=== PATIENT | female | born 1990 ===

== ENCOUNTER 2016-12-02 19:14 | Inpatient (IN) ==
[2016-12-02] MEDS ORDERED: SODIUM CHLORIDE 0.9% 1,000 ML IV STA (19:47)
[2016-12-02] MEDS ORDERED: VANCOMYCIN INJ 1,000 MG in SODIUM CHLORIDE 0.9% 250 ML IV STA (19:47)
--- NOTE | 2016-12-02 19:53 | Emergency Department Note ---
Arrival - Arrival Chief Complaint: Abscess Stated Complaint: abcess removal scheduled ED Nursing Triage Note: C/O Perirectal abscess. Onset 4-5 days ago. Pt was transferred from [facility] for further evaluation/possible admission. +fever at home. Pt reports that she is a diabetic, but hasn't taken medication for approximately 6 months. FSG 398 at time of triage Mode of Arrival: Ambulatory Limitations: No Limitations Source: Patient Time Seen by Provider: 12/02/16 19:47 - History of Present Illness HPI Narrative: This 26-year-old female presents on referral from [facility] for further evaluation of perirectal abscess. The patient's had onset of lesion she states 4-5 days ago. She has been constipated and cannot really speak to pain on defecation. She denies chills or fever although she was febrile [facility] and likewise here on arrival. Of note, she is a diabetic but has not taken her medication for approximately 6 months. She does not recall what she took at the time. Currently at rest in bed she is in no acute medical distress Onset (ago): day(s) (Patient presents 5 days after onset of symptoms.) Date of Last Menstrual Period: Nov 08 Allergies/Adverse Reactions: Allergies Allergy/AdvReac Type Severity Reaction Status Date / Time No Known Allergies Allergy Verified 12/02/16 19:27 Home Medications: Home Medications Medication Instructions Recorded Confirmed Type No Known Home Medications [No 12/02/16 12/02/16 History Known Home Medications] Review of System - Review of System 12 point system: reviewed and no additional remarkable complaints except as stated - Review of System Gastrointestinal: Present: as per HPI Skin: Present: as per HPI Medical,Surgical,& Family Hx - Medical History Endocrine: History of: Diabetes Mellitus (NIDDM) - Social History Smoking Status: Current every day smoker Frequency of Alcohol Use: Frequently Type of Drug Use: None Exam Physical Examination: GENERAL: Obese [place] female in no acute distress. HEENT: Normocephalic. No trauma. Moist mucous membranes. EOMI. PERRLA. ENT NML NECK: Supple. No adenopathy. CARDIAC: Regular. No murmurs. CHEST: Clear to auscultation. No respiratory distress. ABDOMEN: Soft. Nontender. Active bowel sounds.: Left buttock large perirectal and cheek abscess EXTREMITIES: No trauma. Normal ROM. No pedal edema. SKIN: No diaphoresis. No rash. NEURO: Alert. Neuro intact no focal deficits. Vital Signs: Vital Signs Temperature 100.1 F H 12/02/16 19:28 Pulse Rate 122 H 12/02/16 19:28 Respiratory Rate 16 12/02/16 19:28 Blood Pressure 119/90 12/02/16 19:28 O2 Sat by Pulse Oximetry 98 12/02/16 19:28 Course - Reevaluation(s) Reevaluation #1: Advised patient of admission need for restart of medications for diabetes - Consultations Consultation #1: Discussed with Dr. Corey who will admit for further evaluation treatment. Disposition Clinical Impression: Left perirectal abscess, Poorly controlled diabetes Case discussed with: patient, patient's family Disposition: Still a Patient Condition: Guarded Time of Disposition: 20:04
[2016-12-02] MEDS ORDERED: INSULIN REGULAR 100 UNIT/ML IV STA (19:55)
[2016-12-02] MEDS ORDERED: DEXTROSE 50% 25 GM/50 ML VIAL IV PRN (19:57)
[2016-12-02] MEDS ORDERED: GLUCAGON 1 MG VIAL IM PRN (19:57)
[2016-12-02] MEDS ORDERED: VANCOMYCIN 1,000 MG VIAL ONE (20:02)
[2016-12-02 20:10] LABS: Basophils % 0.4 % (0.0-0.8); Eosinophils % 0.3 % (0.00-10.9); Hematocrit 35.9 VOL% (35.7-47.0); Hemoglobin 13.1 GM/DL (12.0-16.0); Immature Granulocytes % 0.6 %; Immature Granulocytes Absolute 0.06 #; Lymphocytes # 1.9 10*3/uL (1.4-4.0); Lymphocytes % 18.7 % (21.3-54.2); Mean Corpuscular HGB Conc 36.5 GM/DL (32-36); Mean Corpuscular Hemoglobin 33 PG (27-34); Mean Corpuscular Volume 90.2 FL (87-102); Mean Platelet Volume 10.9 FL (9.6-12.0); Monocytes # 0.7 10*3/uL (0.11-0.8); Neutrophils # 7.6 10*3/uL (1.4-7.4); Platelet Count 213 T/CUMM (130-400); Red Blood Count 3.98 MC/CUMM (3.8-5.5); Red Cell Distribution Width 11.4 % (9.3-17.3); White Blood Count 10.4 T/CUMM (4-12)
[2016-12-02 20:25] LABS: Calcium 8.7 MG/DL (8.5-10.1); Osmolality,Calculated 280.2 MOS/KG (273-304); Potassium 3.7 MMOL/L (3.5-5.1)
[2016-12-02] MEDS ORDERED: DEXTROSE 50% 25 GM/50 ML SYRINGE IV PRN (22:00)
[2016-12-03] MEDS: SODIUM CHLORIDE 0.9% 1,000 ML IV SCH ×5 (01:24→21:45)
[2016-12-03] MEDS: HYDROmorphone 2 MG/1 ML VIAL IV PRN ×2 (01:25→14:04)
[2016-12-03] MEDS: PIPERACILLIN/TAZOBACTAM 3,375 MG in SODIUM CHLORIDE 0.9% 100 ML IV SCH ×2 (01:25→11:20)
[2016-12-03] MEDS: INSULIN REGULAR 100 UNIT/ML SUBCUT SCH ×5 (01:25→22:00)
[2016-12-03] MEDS: ONDANSETRON 4 MG/2 ML VIAL IV PRN ×3 (01:43→18:40)
[2016-12-03] MEDS ORDERED: VANCOMYCIN INJ 1,250 MG in SODIUM CHLORIDE 0.9% 250 ML IV SCH (05:00)
[2016-12-03] MEDS ORDERED: LACTATED RINGERS 1,000 ML IV ONE (05:44)
--- NOTE | 2016-12-03 06:00 | EKG Report ---
Stationary ECG Study [facility] Test Date: 12/03/2016 5:59:21 AM Pat Name: LIZETH LEMON Department: Room: 332 Gender: F Aerobics Teacher: SCOTT : 1990 Requested by: Nick Corey Order Number: [id number] Reading MD: JAMILAH POLLOCK Intervals [place] Rate: 114 P: 32 IN: 132 QRS: 11 QRSD: 107 T: 15 QT: 329 QTc: 396 Interpretive Statements SINUS TACHYCARDIA ABNORMAL RHYTHM ECG Electronically Signed On 12-03-16 10:21:09 CDT by JAMILAH POLLOCK [email or web address]
--- NOTE | 2016-12-03 07:39 | General Surg History&Physical ---
Assessment and Plan (1) Bryon-rectal abscess Status: Acute Assessment and plan: Plan for rectal exam under anesthesia with incision and drainage of bryon-rectal abscess. I have discussed the risks, benefits, and alternatives of the operation, and the expected outcomes have been reviewed. The patient would like to proceed with the operation. Current Visit: Yes History of Present Illness Chief complaint: Anal pain and a fever History of present illness: Ms. Ferrari is a 26 year old female who has a history of diabetes and prior perirectal abscess requiring drainage in the office who was transferred [facility] for anal pain with large perirectal abscess. She had fevers overnight and tachycardia and is on antibiotics. Home Medications Medication Instructions Recorded Confirmed Type No Known Home Medications [No 12/02/16 12/02/16 History Known Home Medications] Allergies Allergy/AdvReac Type Severity Reaction Status Date / Time No Known Allergies Allergy Verified 12/02/16 19:27 Medical,Surgical,& Family Hx - Medical History HEENT: History of: Eye Problem (wears glasses) Endocrine: History of: Diabetes Mellitus (NIDDM) - Family History Family History: Reports;: Family Cancer, Family Diabetes - Social History Smoking Status: Current every day smoker Frequency of Alcohol Use: Frequently Type of Drug Use: None Exam - Constitutional Vitals: Period Temp Pulse Resp BP Sys/[place] Pulse Ox Last 24 Hr 99.5 F-101.2 F 75-122 16-21 103-131/63-90 96-100 General appearance: no acute distress, over weight - Head Head exam: Present: normal inspection, normocephalic - Eye Eye exam: Present: EOMI Pupils: Present: CAMELIA - ENT ENT exam: Present: normal exam Mouth exam: Present: normal external inspection, normal voice - Neck Neck exam: Present: normal inspection, trachea midline - Respiratory Respiratory exam: Present: clear to auscultation bilaterally. Absent: accessory muscle use, chest wall tenderness - Cardiovascular Cardiovascular exam: Present: tachycardia. Absent: irregular rhythm, systolic murmur - GI/Abdominal GI/Abdominal exam: Present: normal bowel sounds, soft. Absent: tenderness, rebound - Anus/Rectum Anus/Rectum: other (large bryon-rectal abscess) - Neurological Exam Neurological exam: Present: alert, oriented X3 Speech: Present: normal - Skin Skin exam: Present: normal color, warm - Constitutional Constitutional: Present: as per HPI - EENT Nose, mouth and throat: Present: as per HPI - Cardiovascular Cardiovascular: Present: as per HPI - Respiratory Respiratory: Present: as per HPI - Gastrointestinal Gastrointestinal: Present: as per HPI - Genitourinary Genitourinary: Present: as per HPI - Musculoskeletal Musculoskeletal: Present: as per HPI - Neurological Neurological: Present: as per HPI - Endocrine Endocrine: Present: as per HPI Hematologic/Lymphatic: Present: as per HPI Results - Labs CBC & BMP: 12/02/16 19:49 12/02/16 19:49
--- NOTE | 2016-12-03 09:40 | Operative Note ---
Date of procedure: 12/03/16 Pre-op diagnosis: Perirectal abscess Post-op diagnosis: same Procedure: Preoperative diagnosis Perirectal abscess Postoperative diagnosis Same Procedures performed 1. Rectal exam under anesthesia 2. Incision and drainage of perirectal abscess Findings Large perirectal abscess with purulent fluid drained externally. Culture sent to the lab. Patient tolerated the procedure well. There is no fistula to the rectum. Complications None apparent Specimen Cultures sent to the lab Anesthesia General LMA Blood loss Minimal Indications Recurrent perirectal abscess Description of procedure The patient was taken to the operating room and transferred to the operating table in the supine position. Pressure points were padded and SCDs were placed lower extremities. General LMA anesthesia was administered. The patient was placed in lithotomy position. The perineum and buttocks was prepped with Betadine and draped sterilely. Timeout was called. Rectal exam under anesthesia revealed no internal opening into the rectum or the anal canal. There is a large indurated fluctuant mass in the left area of the anal margin consistent with perirectal abscess. This was drained externally with a scalpel. Pus was drained and loculations were broken up completely. Cultures were taken from the purulent fluid. Wound was irrigated and packed with iodoform packing gauze and covered with dry gauze as well as ABD and mesh underwear. The patient was taken out of lithotomy position, extubated, transferred to recovery. Postoperative plan Continue wound care and antibiotics Glycemic control and restart home medications once we get these. Implants: iodoform packing gauze Anesthesia: GETA Surgeon / Physician: Nick Corey Estimated blood loss: minimal Specimens: other (cultures) Condition: stable Disposition: PACU Results - Labs CBC & BMP: 12/02/16 19:49 12/02/16 19:49 Discharge Plan - Discharge Data Disposition: Disch To Home/Self Care Condition at Discharge: Stable Discharge Diet: advance to your usual diet Activity: resume usual activities as tolerated Hygiene: may shower Weight Bearing at Discharge: weight bear as tolerated Driving: other (Do not drive or operate heavy machinery for at least 24 hours and after you are off of narcotic pain medications.) Contact your physician if you experience:: fever over 101, Difficulty voiding, Redness or swelling, Nausea/Vomiting, Shortness of breath, Bleeding, pain uncontrolled by pain medications Wound / Dressing Care Instructions: Pack the wound once daily with packing gauze and cover with dry gauze. - Discharge Medications New Sulfameth/Trimeth 800-160 Tab [Bactrim DS Tab] 1 tablet PO BID #20 tablet HYDROcodone/ACETAMIN 7.5-325 [[place] 7.5-325] 1 tablet PO Q4H PRN #15 tablet PRN Reason: Pain - Follow Up or Referral Follow Up: Nick Corey MD [Physician] - 1 Week - Forms/Instructions
--- NOTE | 2016-12-03 10:19 | Anesthesia Post-Op ---
Anesthesia Post OP - Post Ansesthetic Evaluation Patient seen in post op: Yes Resp: within normal limits CV: within normal limits Mental: within normal limits Temp: within normal limits Ngtv-[id number]-Xigvngcch: within normal limits Nausea and Vomiting: within normal limits Pain: within normal limits
[2016-12-03] MEDS ORDERED: PROPOFOL 200 MG/20 ML VIAL IV ONE (10:45)
[2016-12-03] MEDS ORDERED: SEVOFLURANE 1 UNIT/15 MINUTE INH ONE (10:45)
[2016-12-03] MEDS ORDERED: ACETAMINOPHEN 1,000 MG/100 ML VIAL IV ONE (10:46)
[2016-12-03] MEDS ORDERED: ONDANSETRON 4 MG/2 ML VIAL ONE (10:46)
[2016-12-03] MEDS ORDERED: KETOROLAC 30 MG/1 ML VIAL ONE (10:46)
[2016-12-03] MEDS ORDERED: MIDAZOLAM 2 MG/2 ML VIAL ONE (10:46)
[2016-12-03] MEDS ORDERED: fentaNYL 100 MCG/2 ML VIAL ONE (10:47)
[2016-12-03] MEDS ORDERED: GLUCAGON 1 MG VIAL IM PRN ×2 (13:04→13:05)
[2016-12-03] MEDS ORDERED: DEXTROSE 50% 25 GM/50 ML VIAL IV PRN ×2 (13:04→13:05)
--- NOTE | 2016-12-03 13:27 | Hospitalist Consult Note ---
Assessment and Plan (1) Uncontrolled diabetes mellitus Status: Acute Assessment and plan: The patient's blood sugars have remained grossly elevated. This may be largely attributed to the current infectious process however, the patient reported noncompliance 6 months. We will obtain a hemoglobin A1c and continue Accu- Cheks with sliding scale coverage. In addition, we will start Levemir 15 units twice daily with meals. Spoke with patient in great detail regarding the merits glycemic control and consequences associated with poor glycemic control and medical noncompliance. Patient reported that she "works at night and cannot meet her appointments early in the morning". Current Visit: Yes History of Present Illness - Consult Narrative Reason for consult: Diabetes management History of present illness: This is a very pleasant 26-year-old female that presented to [facility] on the night of December 02, 2016 as a transfer from the [facility] for further evaluation of a perirectal abscess. The patient reported a medical history significant for diabetes mellitus, multiple diabetic abscesses, and current nicotine use. Patient is a surgical history for multiple incision and drainage for multiple diabetic abscesses. The patient reported the onset of symptoms 4-5 days prior to presentation. The patient reported that she noticed a lesion and that she had been experiencing constipation and painful defecation. She presented to the [facility] for further evaluation. The patient was seen and evaluated at the [facility]. The patient was noted to be febrile at the time of presentation and hypoglycemic with a glucose level noted at 398. In addition, a large left buttock perirectal and cheek abscess was noted. The patient was subsequently transferred to [facility] for continuation of care and surgical evaluation. Surgical consultation was requested at the time of admission. The patient was seen and recommendations were given. On December 03, 2016, the patient underwent incision and drainage of perirectal abscess under the direction of Dr. Nick Corey. During the clinical encounter, the patient's blood sugars have remained remarkably elevated. Hospital medicine has been consulted to assist in the management of the patient's diabetes mellitus. CC: Nick Corey MD - Home Medications and Allergies Home Medications: Home Medications Medication Instructions Recorded Confirmed Type HYDROcodone/ACETAMIN 7.5-325 1 tablet PO Q4H PRN #15 tablet 12/03/16 Rx [[place] 7.5-325] Sulfameth/Trimeth 800-160 Tab 1 tablet PO BID #20 tablet 12/03/16 Rx [Bactrim DS Tab] Allergies/Adverse Reactions: Allergies Allergy/AdvReac Type Severity Reaction Status Date / Time No Known Allergies Allergy Verified 12/02/16 19:27 Medical,Surgical,& Family Hx - Medical History HEENT: History of: Eye Problem (wears glasses) Endocrine: History of: Diabetes Mellitus (NIDDM) - Family History Family History: Reports;: Family Cancer, Family Diabetes - Social History Smoking Status: Current every day smoker Have you smoked in the last 12 months: Yes Time spent discussing smoking cessation with patient: 3 to 10 minutes Frequency of Alcohol Use: Frequently Type of Drug Use: None Marital Status: Single Lives With:: Parent Functional capacity: independent ambulation 12 point system: reviewed and no additional remarkable complaints except as stated Exam - Constitutional Vitals: Period Temp Pulse Resp BP Sys/[place] Pulse Ox Last 24 Hr 97.9 F-101.2 F 75-122 16-21 103-131/63-90 95-100 General appearance: normal weight, no acute distress - Head Head exam: Present: normal inspection, normocephalic, atraumatic - Eye Eye exam: Present: EOMI. Absent: conjunctival injection Pupils: Present: CAMELIA, normal accommodation - ENT ENT exam: Present: normal exam, normal external ear exam, normal oropharynx - Neck Neck exam: Present: normal inspection. Absent: lymphadenopathy, meningismus, tenderness, thyromegaly - Respiratory Respiratory exam: Present: clear to auscultation bilaterally. Absent: rales, rhonchi, stridor, wheezes - Cardiovascular Cardiovascular exam: Present: regular rate and rhythm. Absent: carotid bruit, diastolic murmur, gallop, irregular rhythm, rubs, systolic murmur - GI/Abdominal GI/Abdominal exam: Present: normal bowel sounds, soft - Extremities Exam Extremities exam: Present: normal inspection, normal capillary refill, full ROM , edema - Back Exam Back exam: Present: normal inspection - Neurological Exam Neurological exam: Present: alert, oriented X3, CN II-XII intact - Psychiatric Psychiatric exam: Present: normal affect, normal mood - Skin Skin exam: Present: normal color, warm, other (Status post incision and drainage to left buttocks and perirectal abscess.) Results - Labs CBC & BMP: 12/02/16 19:49 12/02/16 19:49 Lab Results: I have reviewed the past 24 hour labs Specialty Discharge - Follow Up or Referrals Follow up with: Nick Corey MD [Physician] - 12/08/16 2:30 pm
[2016-12-03] MEDS ORDERED: INSULIN GLARGINE 100 UNIT/ML SUBCUT SCH ×2 (17:00→21:00)
[2016-12-03] MEDS: INSULIN GLARGINE 100 UNIT/ML SUBCUT SCH ×2 (18:39→21:59)
[2016-12-03] MEDS ORDERED: PROMETHAZINE 25 MG/1 ML VIAL IM PRN (19:15)
[2016-12-03] MEDS: SULFAMETHOX/TRIMETHOPRIM 800-160 MG TABLET PO SCH ×2 (19:47→21:55)
[2016-12-04] MEDS: SODIUM CHLORIDE 0.9% 1,000 ML IV SCH ×3 (03:00→23:49)
[2016-12-04 03:51] LABS: Basophils % 0.2 % (0.0-0.8); Eosinophils % 0.3 % (0.00-10.9); Hematocrit 30.6 VOL% (35.7-47.0); Hemoglobin 11.2 GM/DL (12.0-16.0); Immature Granulocytes % 0.6 %; Immature Granulocytes Absolute 0.05 #; Lymphocytes # 1.1 10*3/uL (1.4-4.0); Lymphocytes % 12.8 % (21.3-54.2); Mean Corpuscular HGB Conc 36.6 GM/DL (32-36); Mean Corpuscular Hemoglobin 33 PG (27-34); Mean Corpuscular Volume 90.8 FL (87-102); Mean Platelet Volume 11.1 FL (9.6-12.0); Monocytes # 0.8 10*3/uL (0.11-0.8); Monocytes % 9.6 % (1.7-12.7); Neutrophils # 6.7 10*3/uL (1.4-7.4); Neutrophils % 76.5 % (38.7-73.9); Platelet Count 192 T/CUMM (130-400); Red Blood Count 3.37 MC/CUMM (3.8-5.5); Red Cell Distribution Width 11.2 % (9.3-17.3); White Blood Count 8.7 T/CUMM (4-12)
[2016-12-04 04:23] LABS: Albumin 2.3 G/DL (3.4-5.0); Calcium 7.9 MG/DL (8.5-10.1); Magnesium 1.9 MG/DL (1.8-2.4); Osmolality,Calculated 285.4 MOS/KG (273-304); Phosphorous 3.8 MG/DL (2.5-4.9); Potassium 3.6 MMOL/L (3.5-5.1)
[2016-12-04] MEDS: ONDANSETRON 4 MG/2 ML VIAL IV PRN ×2 (08:58→15:53)
[2016-12-04] MEDS: INSULIN REGULAR 100 UNIT/ML SUBCUT SCH ×4 (09:01→23:50)
[2016-12-04] MEDS: CLINDAMYCIN INJ 300 MG in PREMIX 1 EACH IV SCH ×3 (09:07→21:00)
[2016-12-04] MEDS ORDERED: ACETAMINOPHEN 325 MG/10.15 ML UDCUP PO PRN (09:10)
--- NOTE | 2016-12-04 09:10 | Event Note ---
She is afebrile. Her main complaint has been nausea. Her pain in her bottom is much better. She thinks her nausea may be better this morning. We have given her Zofran and then Phenergan. We will continue antibiotics and wound care for now.
--- NOTE | 2016-12-04 10:06 | Hospitalist Progress Note ---
Addendum entered and electronically signed by Ilya Kitchen CNP 12/04/16 10 :14: In addition, the patient's hemoglobin A1c was noted at 11.4 a clear indication of poor glycemic control. Spoke with patient in great detail regarding the need to maintain medical compliance and glycemic control. We will continue Accu -Cheks with sliding scale coverage as previously ordered. We will monitor blood glucose levels. Although the patient has an infectious process that could possibly be contributing to her elevations in her glucose levels, I feel that this is largely related to medical noncompliance. Original Note: Assessment and Plan (1) Uncontrolled diabetes mellitus Status: Acute Assessment and plan: The patient's blood sugars have remained grossly elevated. This may be largely attributed to the current infectious process however, the patient reported noncompliance 6 months. We will obtain a hemoglobin A1c and continue Accu- Cheks with sliding scale coverage. In addition, we will start Levemir 15 units twice daily with meals. Spoke with patient in great detail regarding the merits glycemic control and consequences associated with poor glycemic control and medical noncompliance. Patient reported that she "works at night and cannot meet her appointments early in the morning". Current Visit: Yes (2) Acute renal failure Status: Acute Assessment and plan: The patient experienced an abrupt decrease in renal function; BUN and creatinine noted at 20/2.10 today a noted change from 11/0.80 on yesterday. This may be largely attributed to her antibiotic therapy of Bactrim. We will discontinue Bactrim and start clindamycin 300 mg every 6 hours intravenously. In addition we will continue to rehydrate and recheck renal function in a.m. Current Visit: Yes (3) Liver function abnormality Status: Acute Assessment and plan: Upon review of the a.m. labs, the patient's renal function is noted less than favorable. Total bilirubin was noted at 2.0, AST 122, ALT 189, and alkaline phosphatase at 238. The sudden onset of liver dysfunction may be attributed to the use of Bactrim. The patient's Bactrim has been discontinued. We will start clindamycin 300 mg every 6 hours intravenously. In addition, we will obtain hepatitis panel to assess for acute hepatitis infection. Current Visit: Yes Hospitalist: Subjective Interval history: Patient seen and examined; chart reviewed. No significant overnight events reported per staff. Noted decrease in renal function upon review of labs this a.m. BUN and creatinine noted at 20/2.1. Hemoglobin A1c noted at 11.4. Exam - Constitutional Vitals: Period Temp Pulse Resp BP Sys/[place] Pulse Ox Last 24 Hr 97.1 F-98.7 F 77-99 16-20 103-147/57-90 94-100 General appearance: normal weight, no acute distress - Head Head exam: Present: normal inspection, normocephalic, atraumatic - Eye Eye exam: Present: EOMI. Absent: conjunctival injection Pupils: Present: CAMELIA, normal accommodation - ENT ENT exam: Present: normal exam, normal external ear exam, normal oropharynx - Neck Neck exam: Present: normal inspection. Absent: lymphadenopathy, meningismus, thyromegaly - Respiratory Respiratory exam: Present: clear to auscultation bilaterally. Absent: rales, rhonchi, stridor, wheezes - Cardiovascular Cardiovascular exam: Present: regular rate and rhythm. Absent: carotid bruit, diastolic murmur, gallop, JVD, rubs, systolic murmur - GI/Abdominal GI/Abdominal exam: Present: normal bowel sounds, soft - Extremities Exam Extremities exam: Present: normal inspection, normal capillary refill, full ROM. Absent: edema - Back Exam Back exam: Present: normal inspection - Neurological Exam Neurological exam: Present: alert, oriented X3, CN II-XII intact - Psychiatric Psychiatric exam: Present: normal affect, normal mood - Skin Skin exam: Present: normal color, warm, dry Results - Labs CBC & BMP: 12/04/16 03:22 12/04/16 03:22 Lab Results: I have reviewed the past 24 hour labs Specialty Discharge - Follow Up or Referrals Follow up with: Nick Corey MD [Physician] - 12/08/16 2:30 pm
[2016-12-04 10:07] LABS: Hepatitis A Ab IgM Quant 0.06 Index; Hepatitis A Ab IgM Result Negative (Negative); Hepatitis B Core IgM Quant 0.11 Index; Hepatitis B Core IgM Result Negative (Negative); Hepatitis B Surface Ag Quant < 0.10 Index; Hepatitis B Surface Ag Result Negative (Negative); Hepatitis C Virus Ab Quant 0.04 Index; Hepatitis C Virus Ab Result Negative (Negative)
[2016-12-04] MEDS ORDERED: ACETAMINOPHEN 325 MG TABLET PO PRN (12:00)
[2016-12-04] MEDS ORDERED: SODIUM CHLORIDE 0.9% 1,000 ML IV ONE (13:09)
[2016-12-04] MEDS: INSULIN GLARGINE 100 UNIT/ML SUBCUT SCH ×2 (18:08→23:50)
[2016-12-05] MEDS: ONDANSETRON 4 MG/2 ML VIAL IV PRN ×2 (00:05→08:47)
[2016-12-05] MEDS: CLINDAMYCIN INJ 300 MG in PREMIX 1 EACH IV SCH ×4 (02:40→21:18)
[2016-12-05 04:52] LABS: Calcium 7.9 MG/DL (8.5-10.1); Magnesium 1.9 MG/DL (1.8-2.4); Osmolality,Calculated 291.1 MOS/KG (273-304); Potassium 3.8 MMOL/L (3.5-5.1)
[2016-12-05 06:05] LABS: Hepatitis A Ab IgM Quant 0.06 Index; Hepatitis A Ab IgM Result Negative (Negative); Hepatitis B Core IgM Quant 0.11 Index; Hepatitis B Core IgM Result Negative (Negative); Hepatitis B Surface Ag Quant < 0.10 Index; Hepatitis B Surface Ag Result Negative (Negative); Hepatitis C Virus Ab Quant 0.05 Index; Hepatitis C Virus Ab Result Negative (Negative)
[2016-12-05] MEDS: SODIUM CHLORIDE 0.9% 1,000 ML IV SCH ×3 (06:09→21:20)
[2016-12-05] MEDS: INSULIN REGULAR 100 UNIT/ML SUBCUT SCH ×4 (08:22→21:21)
--- NOTE | 2016-12-05 08:55 | Hospitalist Progress Note ---
Assessment and Plan (1) Uncontrolled diabetes mellitus Status: Acute Assessment and plan: The patient's blood sugars have remained grossly elevated. This may be largely attributed to the current infectious process however, the patient reported noncompliance 6 months. We will obtain a hemoglobin A1c and continue Accu- Cheks with sliding scale coverage. In addition, we will start Levemir 15 units twice daily with meals. Spoke with patient in great detail regarding the merits glycemic control and consequences associated with poor glycemic control and medical noncompliance. Patient reported that she "works at night and cannot meet her appointments early in the morning". Current Visit: Yes (2) Acute renal failure Status: Acute Assessment and plan: The patient experienced an abrupt decrease in renal function; BUN and creatinine noted at 20/2.10 today a noted change from 11/0.80 on yesterday. This may be largely attributed to her antibiotic therapy of Bactrim. We will discontinue Bactrim and start clindamycin 300 mg every 6 hours intravenously. In addition we will continue to rehydrate and recheck renal function in a.m. 12/05-BUN and creatinine remain abnormal at 17/2.10. Upon examination this morning, the patient's intravenous fluids have been stopped. Spoke with patient on the concern patient reported that she "told him that she did not need them". Spoke with patient in great detail regarding her current renal function and the imperative need for fluid resuscitation. Instructed nursing staff to resume IV fluids as previously ordered. We will recheck CMP in a.m. Current Visit: Yes (3) Liver function abnormality Status: Acute Assessment and plan: Upon review of the a.m. labs, the patient's renal function is noted less than favorable. Total bilirubin was noted at 2.0, AST 122, ALT 189, and alkaline phosphatase at 238. The sudden onset of liver dysfunction may be attributed to the use of Bactrim. The patient's Bactrim has been discontinued. We will start clindamycin 300 mg every 6 hours intravenously. In addition, we will obtain hepatitis panel to assess for acute hepatitis infection. 12/05-hepatitis panel negative. We will we will monitor hepatic function closely and continue IV rehydration. We will recheck labs in a.m. Current Visit: Yes Hospitalist: Subjective Interval history: Patient seen and examined; chart reviewed. No significant overnight events reported per staff. Creatinine remains elevated at 2.10. We will continue fluid resuscitation and recheck labs in a.m. Exam - Constitutional Vitals: Period Temp Pulse Resp BP Sys/[place] Pulse Ox Last 24 Hr 97.7 F-98.2 F 66-83 16-20 126-153/70-97 95-99 General appearance: normal weight, no acute distress - Head Head exam: Present: normal inspection, normocephalic, atraumatic - Eye Eye exam: Present: EOMI. Absent: conjunctival injection Pupils: Present: CAMELIA, normal accommodation - ENT ENT exam: Present: normal exam, normal external ear exam, normal oropharynx - Neck Neck exam: Present: normal inspection. Absent: lymphadenopathy, meningismus, tenderness, thyromegaly - Respiratory Respiratory exam: Present: clear to auscultation bilaterally. Absent: rales, rhonchi, stridor, wheezes - Cardiovascular Cardiovascular exam: Present: regular rate and rhythm. Absent: carotid bruit, diastolic murmur, gallop, JVD, rubs, systolic murmur - GI/Abdominal GI/Abdominal exam: Present: normal bowel sounds, soft - Extremities Exam Extremities exam: Present: normal inspection, normal capillary refill, full ROM. Absent: edema - Back Exam Back exam: Present: normal inspection - Neurological Exam Neurological exam: Present: alert, oriented X3 - Psychiatric Psychiatric exam: Present: normal affect, normal mood - Skin Skin exam: Present: normal color, warm, dry, other (Status post I&D of perirectal and left buttock abscess) Results - Labs CBC & BMP: 12/04/16 03:22 12/05/16 02:46 Lab Results: I have reviewed the past 24 hour labs Specialty Discharge - Follow Up or Referrals Follow up with: Nick Corey MD [Physician] - 12/08/16 2:30 pm
[2016-12-05] MEDS ORDERED: PROCHLORPERAZINE 5 MG TABLET PO PRN (10:27)
[2016-12-05] MEDS ORDERED: ONDANSETRON 4 MG/2 ML VIAL IV PRN (10:29)
--- NOTE | 2016-12-05 11:15 | Event Note ---
She continues to have pain and nausea. Etiology of this is unclear. I took out her packing and looked at her wound carefully today. I do not see evidence of recurring infection or necrosis. We will continue antibiotics and she does not appear that she is for discharge at this point.
[2016-12-05] MEDS: METOCLOPRAMIDE 10 MG/2 ML VIAL IV PRN (11:52)
[2016-12-05] MEDS: INSULIN GLARGINE 100 UNIT/ML SUBCUT SCH ×2 (18:42→21:19)
[2016-12-06] MEDS: CLINDAMYCIN INJ 300 MG in PREMIX 1 EACH IV SCH (01:22)
[2016-12-06] MEDS: METOCLOPRAMIDE 10 MG/2 ML VIAL IV PRN (01:24)
[2016-12-06] MEDS: SODIUM CHLORIDE 0.9% 1,000 ML IV SCH (05:43)
[2016-12-06] MEDS ORDERED: LEVOFLOXACIN 750 MG TABLET PO SCH (07:00)
--- NOTE | 2016-12-06 07:36 | Discharge Summary ---
Hospital Course - Hospital Course Hospital Course: The patient was admitted with perirectal abscess and taken to the operating room on 12/03/2016 for incision and drainage of perirectal abscess externally. She defervesced and her white blood cell count normalized. She was kept over the weekend was ready for discharge on 12/06/2016. She was discharged home with Levaquin and [place]. Diagnosis - Discharge Diagnosis (1) Indira-rectal abscess Status: Acute Specialty Discharge - Follow Up or Referrals Follow up with: Nick Corey MD [Physician] - 12/08/16 2:30 pm Discharge Plan - Discharge Data Disposition: Disch To Home/Self Care Condition at Discharge: Stable Discharge Diet: diabetic diet Activity: resume usual activities as tolerated Hygiene: may shower Weight Bearing at Discharge: weight bear as tolerated Driving: other (Do not drive or operate heavy machinery for at least 24 hours and after you are off of narcotic pain medications.) Contact your physician if you experience:: fever over 101, Difficulty voiding, Redness or swelling, Nausea/Vomiting, Shortness of breath, Bleeding, pain uncontrolled by pain medications Wound / Dressing Care Instructions: Clean the wound once daily and packed with iodoform packing gauze. Take a sitz bath after each bowel movement and make sure the area is cleaned thoroughly and repacked afterwards in addition. - Discharge Medications New Insulin Glargine [Lantus] 25 unit SUBCUT BEDTIME unit Insulin Glargine [Lantus] 10 unit SUBCUT DAILY W/SUPPER unit Levofloxacin Tab [Levaquin Tab] 750 mg PO Q48H #14 tablet HYDROcodone/ACETAMIN 7.5-325 [[place] 7.5-325] 1 tablet PO Q4H PRN #15 tablet PRN Reason: Pain Insulin Regular [HumuLIN R] See Protocol SUBCUT ACHS unit - Follow Up or Referral Follow Up: Nick Corey MD [Physician] - 1 Week - Forms/Instructions Instructions: Abscess (GEN) Exam - Constitutional Vitals: Period Temp Pulse Resp BP Sys/[place] Pulse Ox Last 24 Hr 97.2 F-98.3 F 57-79 15-20 125-161/77-105 95-100 General appearance: no acute distress, over weight - Head Head exam: Present: normal inspection, normocephalic - Eye Eye exam: Present: EOMI Pupils: Present: CAMELIA - ENT ENT exam: Present: normal exam - Neck Neck exam: Present: normal inspection - Respiratory Respiratory exam: Present: clear to auscultation bilaterally. Absent: accessory muscle use, chest wall tenderness - Cardiovascular Cardiovascular exam: Present: regular rate and rhythm. Absent: systolic murmur , tachycardia - GI/Abdominal GI/Abdominal exam: Present: normal bowel sounds, soft. Absent: tenderness, rebound - Extremities Exam Extremities exam: Present: other (The perirectal abscess has no further purulent drainage or necrotic tissue. There was no packing in the wound this morning when I came by.) - Back Exam Back exam: Present: normal inspection - Neurological Exam Neurological exam: Present: alert, oriented X3 - Psychiatric Psychiatric exam: Present: normal affect, normal mood - Skin Skin exam: Present: normal color, warm Discharge Results Procedures and tests throughout hospitalization: Pending Orders 12/02/16 19:49 Blood Culture Stat 12/03/16 Anaerobic Culture Routine Labs on day of discharge: Labs from last 24 hours 12/06/16 12/05/16 12/05/16 06:55 20:01 15:56 POC Glucose 207 H 264 H 176 H 12/05/16 12/05/16 11:21 07:26 POC Glucose 239 H 247 H Preliminary micro results at discharge 12/02/16 19:49 Blood Culture - Preliminary Blood No growth at 3 days 12/02/16 19:49 Blood Culture - Preliminary Blood No growth at 3 days DS: Provider Date of admission: 12/02/16 19:56 Primary care physician: Tony Irby MD Attending physician on admission: Nick Corey MD Consults: 12/03/16 00:30 Consult to Pharmacy [CONS] Routine Reason for Pharmacy Consult: Dose/Manage Vancomycin 12/03/16 06:45 Consult to Anesthesiology [CONS] Routine Consulting Provider: Reason for Anesthesiology: Pre-op Clearance 12/03/16 12:37 Consult to Physician [CONS] Routine Comment: DIABETES carpenter helper Provider: Consulting Provider Notified: Yes When should Consulting Provider be notified: Now Consult to Specialist Group: Hospitalist When should Consulting Provider be notified: Now Person Notified: joie altamirano Date Notified: 12/03/16 Time Notified: 13:00 12/03/16 13:06 Consult to [facility], Educator [CONS] Routine Reason for Marketing Research Coordinator: Diabetes Education Discharging clinician: Nick Corey MD Expected date of discharge: 12/06/16
[2016-12-06] MEDS: INSULIN REGULAR 100 UNIT/ML SUBCUT SCH ×2 (08:48→12:02)
[2016-12-06 09:01] LABS: Albumin 2.2 G/DL (3.4-5.0); Bilirubin,Total 1.1 MG/DL (0.2-1.0); Calcium 7.5 MG/DL (8.5-10.1); Total Protein 5.9 G/DL (6.4-8.3)
[2016-12-06 09:02] LABS: Osmolality,Calculated 282.4 MOS/KG (273-304); Potassium 3.3 MMOL/L (3.5-5.1)
[2016-12-06] MEDS ORDERED: DOCUSATE SODIUM 100 MG CAPSULE PO ONE (09:03)
[2016-12-06] MEDS ORDERED: POTASSIUM CHLORIDE 20 MEQ TABLET PO ONE (10:25)
[2016-12-06] MEDS ORDERED: LACTULOSE 20 GM/30 ML UDCUP PO ONE (10:25)
--- NOTE | 2016-12-06 10:28 | Hospitalist Progress Note ---
Assessment and Plan (1) Indira-rectal abscess Status: Acute Assessment and plan: Status post incision and drainage by Dr. Corey. Cultures noted. Agree with Levaquin orally on discharge. Current Visit: Yes (2) Uncontrolled diabetes mellitus Status: Chronic Current Visit: Yes Qualifiers: Diabetes mellitus type: type 2 Diabetes mellitus complication status: with hyperglycemia (3) Acute renal failure Status: Acute Assessment and plan: This is improving. Her creatinine is 1.6 today down from 2.1. Current Visit: Yes (4) Liver function abnormality Status: Acute Assessment and plan: Hepatitis panel negative. LFTs improving with improved hydration. Current Visit: Yes Hospitalist: Subjective Interval history: Patient seen and examined. No acute events overnight. Case discussed with nursing staff. Labs reviewed. Nausea and vomiting have improved. Patient reports constipation. Last bowel movement 3 days ago. Potassium was low this morning. Liver function tests improving. Anticipate discharge today. Exam - Constitutional Vitals: Period Temp Pulse Resp BP Sys/[place] Pulse Ox Last 24 Hr 97.2 F-98.3 F 56-79 15-20 125-165/77-105 95-100 Exam: Constitutional System: No distress. No tremulousness. Head: Normocephalic, atraumatic. Ears, Nose and Throat System: No pain or tenderness. No epistaxis or discharge Eyes System: Pupils equal, round, and reactive. Extraocular muscles intact. Neck: Supple, without adenopathy, No jugular venous distention. No thyromegaly, neck mass, or prior surgery apparent. Respiratory System: Chest clear to auscultation. Cardiovascular System: Heart with regular rate and rhythm. No murmur. GI System: Abdomen soft, nontender. Normo active bowel sounds present. Musculoskeletal System: limbs with no pedal edema. Full distal pulses. Normal capillary refill. Neurological System: No discernable sensory deficit. No aphasia Psychiatric System: Conversation is rational Results - Labs CBC & BMP: 12/04/16 03:22 12/06/16 08:17 Lab Results: I have reviewed the past 24 hour labs Specialty Discharge - Follow Up or Referrals Follow up with: Nick Corey MD [Physician] - 1 Week
[2016-12-06 12:02] VITALS: BP 160/82
--- NOTE | 2016-12-10 13:38 | Physician Query Form ---
CLICK EDIT DOCUMENT TO SELECT QUERY ANSWER --> OK --> SIGN Kristin Hein RN Clinical Railroad Operator W) [phone] (f) [phone] [email or web address] PROVIDERS: Make your selection(s) from the choices in EACH section by typing an "x" and enter comments in the comment section. Please use your independent medical judgment in providing your response. This request does not imply that any particular answer is desired or expected. CLINICAL INDICATORS: (Providers should not edit this section) Based on documentation of "Acute bryon rectal abscess" " Rectal exam under anesthesia revealed no internal opening into the rectum or the anal canal. There is a large indurated fluctuant mass in the left area of the anal margin consistent with perirectal abscess. This was drained externally with a scalpel. Pus was drained and loculations were broken up completely." "incision and drainage of perirectal abscess externally" Based on the above, could you clarify the appropriate diagnosis, if significant , that supports the above abnormalities and additional evaluation, monitoring, and/or treatment rendered: ( ) Perirectal Abscess (x ) Perianal Abscess ( ) Other, please specify: ( ) Clinically unable to determine COMMENTS: PLEASE ALSO DOCUMENT RESPONSE IN PROGRESS NOTES AND/OR DISCHARGE SUMMARY Use of terms such as suspected, likely, or probable (associated with a specific diagnosis that is being evaluated, monitored, or treated as if it exists) are acceptable and can be restated in the discharge summary if not ruled out. MTDD
== END 2016-12-06 12:53 | disposition home or self-care (01) | DRG 348 ==
LOC: N.ED 19:14 → N.EDINP 19:56 → N.3E 12-03 00:11
PROVIDERS: ADMIT Surgery; ATTEND Surgery

== ENCOUNTER 2020-12-16 09:33 | Inpatient (IN) ==
[2020-12-16] MEDS: LACTATED RINGERS 1,000 ML IV PRN (12:52)
[2020-12-16] MEDS ORDERED: GLUCAGON 1 MG VIAL IM PRN (13:08)
[2020-12-16] MEDS ORDERED: DEXTROSE 50% 25 GM/50 ML VIAL IV PRN (13:08)
[2020-12-16] MEDS ORDERED: PRAMOXINE/HYDROCORTISONE RECTAL FOAM 10 GM CAN RECTAL PRN (13:09)
[2020-12-16] MEDS: NIFEdipine 10 MG CAPSULE PO PRN ×3 (17:17→19:26)
[2020-12-16 17:42] LABS: Basophils % 0.2 % (0.0-0.8); Eosinophils % 0.2 % (0.00-10.9); Hematocrit 30.6 VOL% (35.7-47.0); Hemoglobin 10.5 GM/DL (12.0-16.0); Immature Granulocytes % 0.9 %; Immature Granulocytes Absolute 0.04 #; Lymphocytes # 1.9 10*3/uL (1.4-4.0); Lymphocytes % 44.7 % (21.3-54.2); Mean Corpuscular HGB Conc 34.3 GM/DL (32-36); Mean Corpuscular Volume 95.9 FL (87-102); Mean Platelet Volume 11.2 FL (9.6-12.0); Monocytes % 5.7 % (1.7-12.7); Neutrophils % 48.3 % (38.7-73.9); Platelet Count 154 T/CUMM (130-400); Red Blood Count 3.19 MC/CUMM (3.8-5.5); Red Cell Distribution Width 13.2 % (9.3-17.3); White Blood Count 4.2 T/CUMM (4-12)
[2020-12-16 17:59] LABS: Alanine Aminotransferase 21 U/L (13-56); Albumin 1.7 G/DL (3.4-5.0); Alkaline Phosphatase 146 U/L (45-117); Aspartate Amino Transferase 23 U/L (0-37); Bilirubin,Total < 0.39 MG/DL (0.20-1.00); Blood Urea Nitrogen 15 MG/DL (7-18); Calcium 8.3 MG/DL (8.5-10.1); Carbon Dioxide 19 MMOL/L (21-32); Estimated Glom Filtration Rate 92 ML/MIN; Glucose 78 MG/DL (74-106); Osmolality,Calculated 278.4 MOS/KG (273-304); Potassium 4.5 MMOL/L (3.5-5.1); Sodium 140 MMOL/L (136-145); Total Protein 6.1 G/DL (6.4-8.2); Uric Acid 6.6 MG/DL (2.6-6.0)
[2020-12-16 18:00] LABS: INR 0.9; PT Patient Result 9.6 SECS (10.5-12.0); Partial Thromboplastin Time 31.5 SECS (23.9-33.8)
[2020-12-16] MEDS: LABETALOL 200 MG TABLET PO SCH (20:34)
[2020-12-16] MEDS: DOCUSATE SODIUM 100 MG CAPSULE PO PRN (20:39)
[2020-12-16] MEDS: ACETAMINOPHEN 500 MG TABLET PO PRN (22:00)
[2020-12-17] MEDS ORDERED: OXYTOCIN/LR 20 UNIT/1,000 ML BAG IV PRN (00:09)
[2020-12-17] MEDS ORDERED: ONDANSETRON 4 MG/2 ML VIAL IV PRN (00:09)
[2020-12-17] MEDS ORDERED: BUTORPHANOL 1 MG/ML VIAL IV PRN (00:09)
[2020-12-17 03:08] LABS: Bacteria,Urine Occasional /HPF (Few); Bilirubin,Urine Negative (Negative); Blood, Urine Negative (Negative); Glucose,Urine (UA) Negative (Negative); Ketones,Urine Negative (Negative); Nitrite,Urine Negative (Negative); Protein,Urine 100 MG/DL; RBC,Urine <1 /HPF (0-4); Squamous Epithelial Cell,Urine Occasional /HPF (0-10); Urine Appearance CLEAR (Clear); Urine Color Yellow (Yellow); Urine Specific Gravity 1.008 (1.001-1.035); Urine Urobilinogen < 2.0 EU/DL (0.2-1.0)
[2020-12-17 03:13] LABS: Protein/Creatinine Ratio,Urine 1.6 RATIO
[2020-12-17] MEDS: ACETAMINOPHEN 500 MG TABLET PO PRN ×2 (04:00→21:01)
[2020-12-17] MEDS: LABETALOL 200 MG TABLET PO SCH ×3 (06:41→20:47)
[2020-12-17] MEDS: LACTATED RINGERS 1,000 ML IV PRN (08:55)
[2020-12-17] MEDS ORDERED: DEXTROSE 50% 25 GM/50 ML VIAL IV PRN (10:10)
[2020-12-17] MEDS: NIFEdipine 10 MG CAPSULE PO PRN ×5 (11:46→21:55)
[2020-12-17] MEDS ORDERED: INSULIN REGULAR 100 UNIT/ML SUBCUT SCH (12:00)
[2020-12-17] MEDS: DOCUSATE SODIUM 100 MG CAPSULE PO PRN (20:47)
[2020-12-18] MEDS ORDERED: LACTATED RINGERS 1,000 ML IV SCH ×2 (02:00→07:00)
[2020-12-18] MEDS ORDERED: FAMOTIDINE 20 MG/2 ML VIAL IV ONE (05:30)
[2020-12-18] MEDS ORDERED: CITRIC ACID/SODIUM CITRATE 30 ML UDCUP PO ONE (05:30)
[2020-12-18] MEDS ORDERED: ceFAZolin 2,000 MG/50 ML DUPLEX IV ONE (05:30)
[2020-12-18] MEDS ORDERED: TRANEXAMIC ACID 1,000 MG/10 ML VIAL ONE (05:32)
[2020-12-18] MEDS ORDERED: miSOPROStoL 200 MCG TABLET ONE (05:32)
[2020-12-18] MEDS ORDERED: METHYLERGONOVINE 0.2 MG/1 ML AMP ONE (05:33)
[2020-12-18] MEDS ORDERED: CARBOPROST TROMETHAMINE 250 MCG/ML AMP IM ONE (05:33)
[2020-12-18] MEDS ORDERED: DEXAMETHASONE 4 MG/1 ML VIAL ONE (05:38)
[2020-12-18] MEDS ORDERED: ONDANSETRON 4 MG/2 ML VIAL ONE (05:38)
[2020-12-18] MEDS ORDERED: BUPIVACAINE SPINAL 0.75% 2 ML AMP SPINAL ONE (05:39)
[2020-12-18] MEDS ORDERED: OXYTOCIN/LR 30 UNIT/1,000 ML BAG IV ONE (06:00)
[2020-12-18] MEDS ORDERED: OXYTOCIN 10 UNIT/ML VIAL IM ONE (06:00)
[2020-12-18 06:06] LABS: Basophils % 0.5 % (0.0-0.8); Eosinophils % 0.4 % (0.00-10.9); Hematocrit 33.4 VOL% (35.7-47.0); Hemoglobin 11.3 GM/DL (12.0-16.0); Immature Granulocytes % 0.7 %; Immature Granulocytes Absolute 0.04 #; Lymphocytes # 2.6 10*3/uL (1.4-4.0); Lymphocytes % 46.1 % (21.3-54.2); Mean Corpuscular HGB Conc 33.8 GM/DL (32-36); Mean Corpuscular Volume 96.5 FL (87-102); Mean Platelet Volume 10.9 FL (9.6-12.0); Neutrophils % 46.3 % (38.7-73.9); Platelet Count 172 T/CUMM (130-400); Red Blood Count 3.46 MC/CUMM (3.8-5.5); Red Cell Distribution Width 13.4 % (9.3-17.3); White Blood Count 5.6 T/CUMM (4-12)
[2020-12-18] MEDS ORDERED: PHENYLEPHRINE 1 MG/10 ML SYRINGE IV ONE (06:17)
[2020-12-18] MEDS ORDERED: ACETAMINOPHEN INJ 1,000 MG/100 ML VIAL IV ONE (06:41)
[2020-12-18] MEDS ORDERED: FUROSEMIDE 20 MG/2 ML VIAL ONE (06:46)
[2020-12-18 06:54] LABS: Cord Arterial Blood HCO3 24.5 MMOL/L
[2020-12-18 06:55] LABS: Cord Venous Blood HCO3 20.4 MMOL/L; Cord Venous Blood PCO2 43.3 MMHG; Cord Venous Blood PO2 24.9
[2020-12-18] MEDS ORDERED: GLUCAGON 1 MG VIAL IM PRN (06:59)
[2020-12-18] MEDS ORDERED: ACETAMINOPHEN 325 MG TABLET PO PRN (06:59)
[2020-12-18] MEDS ORDERED: OXYTOCIN/LR 20 UNIT/1,000 ML BAG IV ONE (06:59)
[2020-12-18] MEDS ORDERED: RHO(D) IMMUNE GLOBULIN 300 MCG SYRINGE IM ONE (06:59)
[2020-12-18] MEDS ORDERED: DEXTROSE 50% 25 GM/50 ML VIAL IV PRN (06:59)
[2020-12-18] MEDS ORDERED: ONDANSETRON 4 MG/2 ML VIAL IV PRN (06:59)
[2020-12-18] MEDS ORDERED: FUROSEMIDE 40 MG/4 ML VIAL IV SCH (07:30)
[2020-12-18 08:24] LABS: Total Volume,Urine 2300 ML (400-2000)
[2020-12-18 08:35] LABS: Total Protein 24 Hr Ur Result 3059 MG/24HR (0-149.1)
[2020-12-18 08:38] LABS: Creatinine Clearance Urine 49.58 ML/MIN (70-115)
[2020-12-18] MEDS ORDERED: PROMETHAZINE 25 MG/1 ML VIAL IM ONE (10:02)
[2020-12-18] MEDS ORDERED: HYDROmorphone 2 MG/1 ML VIAL IV ONE (10:03)
[2020-12-18] MEDS: DOCUSATE SODIUM 100 MG CAPSULE PO SCH ×2 (10:15→21:24)
[2020-12-18] MEDS: MULTIVITAMIN (PRENATAL) TABLET PO SCH (10:15)
[2020-12-18] MEDS ORDERED: ACETAMINOPHEN 500 MG TABLET PO SCH (13:00)
[2020-12-18 14:30] LABS: Basophils % 0.2 % (0.0-0.8); Eosinophils % 0.1 % (0.00-10.9); Hematocrit 27.3 VOL% (35.7-47.0); Hemoglobin 9.2 GM/DL (12.0-16.0); Immature Granulocytes % 0.4 %; Immature Granulocytes Absolute 0.03 #; Lymphocytes # 1.8 10*3/uL (1.4-4.0); Lymphocytes % 21.6 % (21.3-54.2); Mean Corpuscular HGB Conc 33.7 GM/DL (32-36); Mean Corpuscular Volume 96.1 FL (87-102); Mean Platelet Volume 10.8 FL (9.6-12.0); Monocytes % 6.7 % (1.7-12.7); Platelet Count 148 T/CUMM (130-400); Red Blood Count 2.84 MC/CUMM (3.8-5.5); Red Cell Distribution Width 13.2 % (9.3-17.3); White Blood Count 8.3 T/CUMM (4-12)
[2020-12-18] MEDS: INSULIN REGULAR 100 UNIT/ML SUBCUT SCH ×2 (16:11→21:45)
[2020-12-18] MEDS: IBUPROFEN 800 MG TABLET PO PRN (18:10)
[2020-12-18] MEDS ORDERED: diphenhydrAMINE 50 MG/1 ML VIAL IM PRN (20:57)
[2020-12-18] MEDS ORDERED: diphenhydrAMINE 50 MG/1 ML VIAL IV PRN (21:30)
[2020-12-19 05:53] LABS: Basophils % 0.5 % (0.0-0.8); Eosinophils % 0.7 % (0.00-10.9); Hemoglobin 7.4 GM/DL (12.0-16.0); Immature Granulocytes % 0.9 %; Immature Granulocytes Absolute 0.05 #; Lymphocytes % 34.3 % (21.3-54.2); Mean Corpuscular HGB Conc 33.6 GM/DL (32-36); Mean Corpuscular Volume 96.5 FL (87-102); Mean Platelet Volume 11.1 FL (9.6-12.0); Monocytes % 7.9 % (1.7-12.7); Neutrophils % 55.7 % (38.7-73.9); Platelet Count 137 T/CUMM (130-400); Red Blood Count 2.28 MC/CUMM (3.8-5.5); Red Cell Distribution Width 13.1 % (9.3-17.3); White Blood Count 5.8 T/CUMM (4-12)
[2020-12-19] MEDS: INSULIN REGULAR 100 UNIT/ML SUBCUT SCH ×4 (08:30→21:33)
[2020-12-19] MEDS ORDERED: SODIUM CHLORIDE 0.9% 1,000 ML IV PRN ×2 (08:45→08:53)
[2020-12-19] MEDS: DOCUSATE SODIUM 100 MG CAPSULE PO SCH ×2 (09:10→21:34)
[2020-12-19] MEDS: MULTIVITAMIN (PRENATAL) TABLET PO SCH (09:10)
[2020-12-19] MEDS: IBUPROFEN 800 MG TABLET PO PRN (19:22)
[2020-12-19] MEDS: MAGNESIUM HYDROXIDE SUSP 30 ML UDCUP PO PRN (21:34)
[2020-12-19] MEDS: SIMETHICONE CHEW 80 MG TABLET PO PRN (21:34)
[2020-12-19] MEDS ORDERED: MAGNESIUM CITRATE 300 ML BOTTLE PO ONE (23:01)
[2020-12-19] MEDS: METOCLOPRAMIDE 10 MG TABLET PO SCH (23:36)
[2020-12-20 05:26] LABS: Hematocrit 27.9 VOL% (35.7-47.0); Hemoglobin 9.4 GM/DL (12.0-16.0)
[2020-12-20] MEDS: IBUPROFEN 800 MG TABLET PO PRN ×2 (05:28→19:51)
[2020-12-20] MEDS: INSULIN REGULAR 100 UNIT/ML SUBCUT SCH ×4 (08:30→23:47)
[2020-12-20] MEDS: METOCLOPRAMIDE 10 MG TABLET PO SCH ×2 (08:49→16:48)
[2020-12-20] MEDS: SIMETHICONE CHEW 80 MG TABLET PO PRN (08:49)
[2020-12-20] MEDS: MAGNESIUM HYDROXIDE SUSP 30 ML UDCUP PO PRN (08:49)
[2020-12-20] MEDS: DOCUSATE SODIUM 100 MG CAPSULE PO SCH ×3 (08:49→20:23)
[2020-12-20] MEDS: MULTIVITAMIN (PRENATAL) TABLET PO SCH (08:49)
[2020-12-20] MEDS: metFORMIN 500 MG TABLET PO SCH ×2 (08:50→16:53)
[2020-12-20] MEDS: FLUTICASONE 50 MCG NASAL SPRAY 16 GM BOTTLE BOTH NARES SCH (23:53)
[2020-12-20] MEDS ORDERED: diphenhydrAMINE CAP 25 MG CAPSULE PO PRN (23:58)
[2020-12-21] MEDS ORDERED: ONDANSETRON 4 MG TABLET PO PRN (00:10)
[2020-12-21] MEDS: INSULIN REGULAR 100 UNIT/ML SUBCUT SCH ×2 (07:35→12:00)
[2020-12-21] MEDS: metFORMIN 500 MG TABLET PO SCH (08:03)
[2020-12-21] MEDS: MULTIVITAMIN (PRENATAL) TABLET PO SCH (09:12)
[2020-12-21] MEDS: DOCUSATE SODIUM 100 MG CAPSULE PO SCH (09:13)
[2020-12-21] MEDS: FLUTICASONE 50 MCG NASAL SPRAY 16 GM BOTTLE BOTH NARES SCH (09:13)
[2020-12-21 09:52] VITALS: BP 145/102
[2020-12-21] MEDS: IBUPROFEN 800 MG TABLET PO PRN (10:54)
[2020-12-21] MEDS ORDERED: MEASLES/MUMPS/RUBELLA VACCINE 0.5 ML VIAL SUBCUT ONE (11:30)
== END 2020-12-21 14:00 | disposition home or self-care (01) | DRG 788 ==
LOC: N.LDOUT 09:33 → N.LD 09:34 → N.OB 12-17 13:47 → N.LD 12-17 23:28 → N.OB 12-18 10:13
PROVIDERS: ADMIT Obstetrics & Gynecology; ATTEND Obstetrics & Gynecology
PROC: LDCSECT (ICD-10-PCS; 2020-12-18 06:00)